=== PATIENT | female | born 1980 | race Native Hawaiian/Other Pacific Islander ===

== ENCOUNTER 2018-12-02 20:56 | Emergency (ER) | payer OTHER ==
[~2018-12-02] VITALS: Ht 165.1 cm; Wt 117.9 kg
[2018-12-02] MEDS ORDERED: LISI10TA11 PO (21:15)
[2018-12-02] MEDS ORDERED: LEVO0.1519 PO (21:16)
[2018-12-02 22:04] LABS: POTASSIUM 3.4 mmol/L (3.6-5.2); SODIUM 138 mmol/L (136-145)
[2018-12-02 22:16] LABS: PLATELET COUNT 225 K/uL (152-353)
[2018-12-03 00:42] VITALS: BP 174/91; TEMP 98.2
== END 2018-12-03 00:40 | disposition home or self-care (01) ==
LOC: ED 20:56
PROVIDERS: Emergency Medicine
DX: R07.89 Other chest pain (principal); F41.9 Anxiety disorder, unspecified; R00.0 Tachycardia, unspecified
CPT/HCPCS: 36415; 80053; 82550; 82553; 84484; 85027; 93005; 96374; 99284; J2270